=== PATIENT | female | born 1940 | race Caucasian/White ===

== ENCOUNTER 2020-08-22 12:13 | Inpatient (IN) | payer MEDICARE ==
[~2020-08-22] VITALS: Ht 154 cm; Wt 73.9 kg
[~2020-08-22 12:13] MED LIST: LISI5TAB; SULF1TAB38 PO
--- NOTE | 2020-08-22 12:30 | NUR ---
ATTEMPT TO CALL PT BACK TO ROOM ET PT NOT IN WAITING ROOM. REGISTRATION STATES THEY WILL TRY TO CONTACT THEM. UNKNONWN IF THEY LEFT OR JUST WENT TO CAR TO WAIT.
[2020-08-22] MEDS ORDERED: NS IV 1000 ML 1,000 ML IV STA (12:53)
--- NOTE | 2020-08-22 12:53 | ED Abdominal Pain ---
General Stated Complaint: ABD PAIN, History of Present Illness Date Seen by Provider: Aug 22, 2020 Time Seen by Provider: 12:53 Initial Comments 79-year-old female presents with right lower quadrant pain with some mild left lower quadrant pain. Patient reports she had an episode about 2 weeks ago which she has some pain after what she thought was some bad turkey and then it went away after a couple days. Reports the pain returned and is worse over the last couple days. She had quite a bit and nausea vomiting yesterday. She has some diarrhea. She denies any fever, chills. She has some generalized malaise and just doesn't feel good. She denies any pain in the upper quadrants. She denies any urinary symptoms. Allergies and Home Medications Allergies Coded Allergies: amoxicillin (Verified Allergy, Severe, HIVES, 08/22/20) cephalexin (Unverified Allergy, Mild, HIVES, 01/22/10) erythromycin base (Unverified Allergy, Mild, 01/22/10) Home Medications Trimethoprim/Sulfamethoxazole 1 Ea Tablet, 1 EA PO BID Prescribed by: JUANPABLO CABRERA on 12/16/11 1250 Patient Home Medication List Home Medication List Reviewed: Yes Review of Systems Review of Systems Constitutional: No chills, No fever; malaise Respiratory: Denies Cough, Denies Shortness of Air Cardiovascular: Denies Chest Pain Gastrointestinal: Denies Abdominal Pain, Denies Nausea, Denies Vomiting Genitourinary: No Symptoms Reported Skin: no symptoms reported Psychiatric/Neurological: No Symptoms Reported Endocrine: No Symptoms Reported Past Njeqopg-Tvibyk-Nqutgj Hx Past Med/Social Hx: Reviewed Nursing Past Med/Soc Hx Physical Exam Vital Signs Vital Signs - First Documented 08/22/20 12:50 Temp 36.7 Pulse 74 Resp 16 B/P (MAP) 148/80 (102) Pulse Ox 96 O2 Delivery Room Air Capillary Refill : Height/Weight/BMI Height: '" Weight: lbs. oz. kg; BMI Method: General Appearance: WD/WN, no apparent distress Respiratory: lungs clear, normal breath sounds Cardiovascular: normal peripheral pulses, regular rate, rhythm Gastrointestinal: soft; No distended; tenderness (right lower quadrant with mild left lower quadrant) Back: no CVA tenderness, no vertebral tenderness Neurologic/Psychiatric: alert, normal mood/affect, oriented x 3 Skin: normal color, warm/dry Focused Exam Lactate Level 08/22/20 14:50: Lactic Acid Level 0.95 Lactic Acid Level Laboratory Tests Test 08/22/20 14:50 Lactic Acid Level 0.95 MMOL/L (0.50-2.00) Progress/Results/Core Measures Results/Orders Lab Results Laboratory Tests Test 08/22/20 13:09 08/22/20 13:14 08/22/20 14:50 Range/Units Urine Color YELLOW Urine Clarity CLOUDY Urine pH 5.0 5-9 Urine Specific Evans >=1.030 1.016-1.022 Urine Protein TRACE H NEGATIVE Urine Glucose (UA) NEGATIVE NEGATIVE Urine Ketones NEGATIVE NEGATIVE Urine Nitrite NEGATIVE NEGATIVE Urine Bilirubin NEGATIVE NEGATIVE Urine Urobilinogen 0.2 < = 1.0 MG/DL Urine Leukocyte Esterase 2+ H NEGATIVE Urine RBC (Auto) 1+ H NEGATIVE Urine RBC 2-5 H /HPF Urine WBC 10-25 H /HPF Urine Squamous Epithelial Cells 5-10 /HPF Urine Crystals PRESENT H /LPF Urine Amorphous Sediment MOD SELIN URATES H /LPF Urine Bacteria MODERATE H /HPF Urine Casts NONE /LPF Urine Mucus NEGATIVE /LPF Urine Culture Indicated YES White Blood Count 11.6 H 4.3-11.0 10^3/uL Red Blood Count 5.00 3.80-5.11 10^6/uL Hemoglobin 14.7 11.5-16.0 g/dL Hematocrit 45 35-52 % Mean Corpuscular Volume 91 80-99 fL Mean Corpuscular Hemoglobin 29 25-34 pg Mean Corpuscular Hemoglobin Concent 33 32-36 g/dL Red Cell Distribution Width 12.9 10.0-14.5 % Platelet Count 253 130-400 10^3/uL Mean Platelet Volume 9.5 9.0-12.2 fL Sodium Level 139 135-145 MMOL/L Potassium Level 4.0 3.6-5.0 MMOL/L Chloride Level 100 98-107 MMOL/L Carbon Dioxide Level 29 21-32 MMOL/L Anion Gap 10 5-14 MMOL/L Blood Urea Nitrogen 15 7-18 MG/DL Creatinine 0.87 0.60-1.30 MG/DL Estimat Glomerular Filtration Rate > 60 BUN/Creatinine Ratio 17 Glucose Level 154 H 70-105 MG/DL Calcium Level 9.5 8.5-10.1 MG/DL Corrected Calcium 9.2 8.5-10.1 MG/DL Total Bilirubin 0.8 0.1-1.0 MG/DL Aspartate Amino Transf (AST/SGOT) 257 H 5-34 U/L Alanine Aminotransferase (ALT/SGPT) 362 H 0-55 U/L Alkaline Phosphatase 100 40-136 U/L C-Reactive Protein High Sensitivity 1.01 H 0.00-0.50 MG/DL Total Protein 7.4 6.4-8.2 GM/DL Albumin 4.4 3.2-4.5 GM/DL Lipase 5197 H 8-78 U/L Lactic Acid Level 0.95 0.50-2.00 MMOL/L My Orders Orders - WALLACE,ALCON L DO Cbc No Diff (08/22/20 12:53) Comprehensive Metabolic Panel (08/22/20 12:53) Hs C Reactive Protein (08/22/20 12:53) Lactic Acid Analyzer (08/22/20 12:53) Lipase (08/22/20 12:53) Ua Culture If Indicated (08/22/20 12:53) Acute Abd Series (08/22/20 12:53) Ondansetron Injection (Zofran Injectio (08/22/20 13:00) Ns Iv 1000 Ml (Sodium Chloride 0.9%) (08/22/20 12:53) Ed Iv/Invasive Line Start (08/22/20 12:53) Fentanyl Injection (Sublimaze Injection (08/22/20 13:16) Urine Culture (08/22/20 13:09) Ct Abdomen/Pelvis W (08/22/20 13:52) Iohexol Injection (Omnipaque 350 Mg/Ml 1 (08/22/20 14:00) Received Contrast (Hold Metformin- Contr (08/22/20 14:00) Ns (Ivpb) (Sodium Chloride 0.9% Ivpb Bag (08/22/20 14:00) Morphine Injection (Morphine Injection (08/22/20 15:30) Lactated Ringers (Lr 1000 Ml Iv Solution (08/22/20 15:37) Medications Given in ED Current Medications Medications Dose Ordered Sig/Curly Route Start Time Stop Time Status Last Admin Dose Admin Iohexol 100 ml ONCE ONCE IV 08/22/20 14:00 08/22/20 14:03 DC 08/22/20 15:05 100 ML Morphine Sulfate 2 mg ONCE ONCE IVP 08/22/20 15:30 08/22/20 15:31 DC 08/22/20 15:32 2 MG Ondansetron HCl 4 mg ONCE ONCE IVP 08/22/20 13:00 08/22/20 13:01 DC 08/22/20 13:08 4 MG Sodium Chloride 100 ml ONCE ONCE IV 08/22/20 14:00 08/22/20 14:03 DC 08/22/20 15:05 80 ML Vital Signs/I&O 08/22/20 12:50 Temp 36.7 Pulse 74 Resp 16 B/P (MAP) 148/80 (102) Pulse Ox 96 O2 Delivery Room Air Progress Progress Note : Time: 16:13 Progress Note Patient with elevated white count, elevated liver enzymes with normal bilirubin and elevated lipase. CT shows what appears to be an acute pancreatitis. Discussed with Dr. Doherty. We will admit patient for IV fluids and pain control. She'll be nothing by mouth. Patient is stable admitted is stable upon admission and transfer to the floor Diagnostic Imaging Diagonstic Imaging: Xray, CT Plain Films/CT/US/NM/MRI: abdomen Comments [facility], [place] NAME: MAXX MAXWELL [facility] REC#: [id number] PT STATUS: REG ER : 1940 PHYSICIAN: ALCON WALLACE DO ADMIT DATE: 08/22/20/ER Draft Date of Exam:08/22/20 CT ABDOMEN/PELVIS W PROCEDURE: CT abdomen and pelvis with contrast. TECHNIQUE: Multiple contiguous axial images were obtained through the abdomen and pelvis after administration of intravenous contrast. Auto Exposure Controls were utilized during the CT exam to meet ALARA standards for radiation dose reduction. All CT scans use one or more of the following dose optimizing techniques: automated exposure control, MA and/or KvP adjustment based on patient size and exam type or iterative reconstruction. INDICATION: Right lower quadrant pain. COMPARISON: There are no prior CT examinations available for comparison. FINDINGS: The plain film examination of the abdomen performed earlier today at 01:38 p.m. failed to show any sign of a bowel obstruction. On this exam however, there is considerable distortion of the mesenteric fat about the tail of the pancreas. I suspect this is due to edema/inflammation related to acute pancreatitis. There is no pancreatic mass or pseudocyst identified. The spleen, liver, adrenals, kidneys, aorta and inferior vena cava and portal vein show no sign of an acute abnormality. There is no evidence for cholelithiasis, but there may be a trace amount of fluid about the gallbladder. This could be secondary to the inflammation of the pancreas. If there is clinical concern regarding acute cholecystitis however, then ultrasound would be recommended. There is no pelvic mass or free fluid collection noted. There is diverticulosis of the sigmoid colon, but there is no sign of acute diverticulitis. The appendix was not particularly well visualized, but there are no indirect signs of acute appendicitis. The urinary bladder is grossly unremarkable. The uterus does not appear to be enlarged but the endometrial lining of the uterus is thickened measuring approximately 22 mm (normal postmenopausal endometrial thickness, 5 mm or less). The reason for the thickened appearance of the endometrium is not certain, but the possibility of an underlying malignancy should certainly be considered. The bone windows show no sign of acute fracture. There are healed fractures of the inferior pubic rami bilaterally. There is also degenerative disc and bone disease throughout the lumbar spine. The lung bases are clear. IMPRESSION: 1. There is considerable distortion of the mesenteric fat about the tail of pancreas. Most likely this is due to edema/inflammation related to an acute pancreatitis. There is no pancreatic mass or pseudocyst identified, however. 2. The trace amount of fluid about the gallbladder is of uncertain etiology. There is no sign of cholelithiasis. If further evaluation of the gallbladder for acute cholecystitis is desired, then ultrasound would be recommended. 3. There is no acute abnormality of the abdomen or pelvis noted, otherwise. 4. The endometrial lining of the uterus is abnormally thickened for a postmenopausal patient. An RETAIL ATTENDANT consult would be recommended when the patient's condition permits. These results were discussed with Dr. Alcon Wallace. Reviewed: Reviewed by Me, Discussed w/Radiologist Departure Communication (Admissions) Time/Spoke to Admitting Phy: 15:37 Impression Primary Impression: Pancreatitis Qualified Codes: K85.90 - Acute pancreatitis without necrosis or infection, unspecified Disposition: ADMITTED INPATIENT Condition: Stable Admissions Decision to Admit Reason: Admit from ER (General) Decision to Admit/Date: Aug 22, 2020 Time/Decision to Admit Time: 15:37 Departure-Patient Inst. Referrals: DEONNA URIARTE MD (PCP/Family) Primary Care Physician ALCON WALLACE DO Aug 22, 2020 12:53
[2020-08-22] MEDS ORDERED: ONDANSETRON 4 MG/2 ML (SDV) Z0FRAN IVP ONE (13:00)
[2020-08-22 13:15] LABS: BILIRUBIN,URINE NEGATIVE (NEGATIVE); CLARITY,URINE CLOUDY; COLOR,URINE YELLOW; GLUCOSE, URINE (UA) NEGATIVE (NEGATIVE); KETONES,URINE NEGATIVE (NEGATIVE); LEUKOCYTE ESTERASE ,URINE 2+ (NEGATIVE); NITRITE,URINE NEGATIVE (NEGATIVE); PROTEIN,URINE TRACE (NEGATIVE)
[2020-08-22] MEDS ORDERED: fentaNYL INJECTION 100 MCG/2 ML AMP IVP STA (13:16)
[2020-08-22 13:21] LABS: HEMOGLOBIN 14.7 g/dL (11.5-16.0); MEAN PLATELET VOLUME 9.5 fL (9.0-12.2); WHITE BLOOD COUNT 11.6 10^3/uL (4.3-11.0)
[2020-08-22 13:22] LABS: BACTERIA,URINE MODERATE /HPF
[2020-08-22 13:23] LABS: AMORPHOUS SEDIMENT,UR MOD AMOR URATES /LPF
[2020-08-22 13:30] LABS: ALBUMIN 4.4 GM/DL (3.2-4.5); CHLORIDE 100 MMOL/L (98-107); SODIUM 139 MMOL/L (135-145)
[2020-08-22 13:31] LABS: CALCIUM 9.5 MG/DL (8.5-10.1)
[2020-08-22 13:32] LABS: GLUCOSE 154 MG/DL (70-105); TOTAL PROTEIN 7.4 GM/DL (6.4-8.2)
[2020-08-22 13:33] LABS: CARBON DIOXIDE 29 MMOL/L (21-32)
[2020-08-22 13:34] LABS: BILIRUBIN,TOTAL 0.8 MG/DL (0.1-1.0)
[2020-08-22 13:36] LABS: ALKALINE PHOSPHATASE 100 U/L (40-136); CREATININE SERUM 0.87 MG/DL (0.60-1.30); GFR ESTIMATED > 60
[2020-08-22 13:37] LABS: BUN/CREATININE RATIO 17
[2020-08-22 13:39] LABS: ALANINE AMINOTRANSFERASE 362 U/L (0-55)
--- NOTE | 2020-08-22 13:46 | Diagnostic Imaging Report ---
INDICATION: abd pain COMPARISON: 03/27/2019 FINDINGS: Supine and upright views of the abdomen show a nondistended bowel gas pattern. No abnormal air fluid levels or free intraperitoneal air is seen. No abnormal extraosseous calcifications are seen. Bony and soft tissue structures are within normal limits. Accompanying upright chest shows normal heart size and pulmonary vascularity. The lungs are well aerated and clear. The mediastinum is normal in appearance. IMPRESSION: 1. No bowel obstruction or free air. 2. Normal chest. No pneumonia or pulmonary edema. Dictated by: Dictated on workstation # [id number]
[2020-08-22] MEDS ORDERED: NS 100 ML (IVPB) BAG IV ONE (14:00)
[2020-08-22] MEDS ORDERED: HOLD METFORMIN - RECEIVED CONTRAST 20 ML VIAL IV SCH (14:00)
[2020-08-22] MEDS ORDERED: IOHEXOL 350 MG/ML 100 ML (OMNIPAQUE 350) VIAL IV ONE (14:00)
[2020-08-22 14:16] LABS: LIPASE 5197 U/L (8-78)
--- NOTE | 2020-08-22 14:35 | NUR ---
CONTACTED BY EMMANUEL BECAUSE PT IS WANTING HIM TO GO HOME.
[2020-08-22] MEDS ORDERED: morphine INJ 10 MG/ML 1ML (SYR OR VIAL) IVP ONE (15:30)
--- NOTE | 2020-08-22 15:36 | Diagnostic Imaging Report ---
PROCEDURE: CT abdomen and pelvis with contrast. TECHNIQUE: Multiple contiguous axial images were obtained through the abdomen and pelvis after administration of intravenous contrast. Auto Exposure Controls were utilized during the CT exam to meet ALARA standards for radiation dose reduction. All CT scans use one or more of the following dose optimizing techniques: automated exposure control, MA and/or KvP adjustment based on patient size and exam type or iterative reconstruction. INDICATION: Right lower quadrant pain. COMPARISON: There are no prior CT examinations available for comparison. FINDINGS: The plain film examination of the abdomen performed earlier today at 01:38 p.m. failed to show any sign of a bowel obstruction. On this exam however, there is considerable distortion of the mesenteric fat about the tail of the pancreas. I suspect this is due to edema/inflammation related to acute pancreatitis. There is no pancreatic mass or pseudocyst identified. The spleen, liver, adrenals, kidneys, aorta and inferior vena cava and portal vein show no sign of an acute abnormality. There is no evidence for cholelithiasis, but there may be a trace amount of fluid about the gallbladder. This could be secondary to the inflammation of the pancreas. If there is clinical concern regarding acute cholecystitis however, then ultrasound would be recommended. There is no pelvic mass or free fluid collection noted. There is diverticulosis of the sigmoid colon, but there is no sign of acute diverticulitis. The appendix was not particularly well visualized, but there are no indirect signs of acute appendicitis. The urinary bladder is grossly unremarkable. The uterus does not appear to be enlarged but the endometrial lining of the uterus is thickened measuring approximately 22 mm (normal postmenopausal endometrial thickness, 5 mm or less). The reason for the thickened appearance of the endometrium is not certain, but the possibility of an underlying malignancy should certainly be considered. The bone windows show no sign of acute fracture. There are healed fractures of the inferior pubic rami bilaterally. There is also degenerative disc and bone disease throughout the lumbar spine. The lung bases are clear. IMPRESSION: 1. There is considerable distortion of the mesenteric fat about the tail of pancreas. Most likely this is due to edema/inflammation related to an acute pancreatitis. There is no pancreatic mass or pseudocyst identified, however. 2. The trace amount of fluid about the gallbladder is of uncertain etiology. There is no sign of cholelithiasis. If further evaluation of the gallbladder for acute cholecystitis is desired, then ultrasound would be recommended. 3. There is no acute abnormality of the abdomen or pelvis noted, otherwise. 4. The endometrial lining of the uterus is abnormally thickened for a postmenopausal patient. An BLEACH BOILER FILLER consult would be recommended when the patient's condition permits. These results were discussed with Dr. Arron Bruno. Dictated by: Dictated on workstation # [id number]
[2020-08-22] MEDS ORDERED: LACTATED RINGERS 1,000 ML IV STA (15:37)
--- NOTE | 2020-08-22 15:51 | NUR ---
PT TALKING TO HER ON THE PHONE.
--- NOTE | 2020-08-22 15:53 | NUR ---
SUMMER BABYSITTER CONTACTED FOR A BED.
--- NOTE | 2020-08-22 16:30 | NUR ---
Mariana Lurdes admitted to room 416-1, with an admitting diagnosis of pancreatitis, on 08/22/20 from [place] via , accompanied by .MARIANA MAXWELL introduced to surroundings, call light, bed controls, phone, TV, temperature control, lights, meal times, smoking policy, visitor policy, side rail policy, bathrooms and showers. Patient Rights given to patient in the handbook.MARIANA MAXWELL verbalizes understanding that [facility] is not responsible for the loss or damage to any personal effects or valuables that are kept in the patients posession during their hospitalization. MARIANA MAXWELL verbalizes understanding of Interdisciplinary Patient Education. Patient and/or family were informed about the Rapid Response Team and its purpose.
[2020-08-22 16:31] VITALS: BP 134/83
[2020-08-22] MEDS: LACTATED RINGERS 1,000 ML IV SCH ×2 (16:42→21:39)
[2020-08-22] MEDS: morphine INJ 4 MG/ML 1 ML (VIAL/SYRINGE) IVP PRN ×2 (16:43→20:05)
[2020-08-22] MEDS: ONDANSETRON 4 MG/2 ML (SDV) Z0FRAN IVP PRN ×2 (16:43→21:39)
[2020-08-22 19:14] VITALS: BP 136/74
[2020-08-23] VITALS: BP 108/61
[2020-08-23] MEDS: LACTATED RINGERS 1,000 ML IV SCH ×5 (02:49→20:10)
[2020-08-23 04:54] VITALS: BP 120/67
[2020-08-23 05:34] LABS: BASOPHILS % (AUTO) 0 % (0-10); EOSINOPHILS % (AUTO) 0 % (0-10); HEMATOCRIT 40 % (35-52); HEMOGLOBIN 12.7 g/dL (11.5-16.0); LYMPHOCYTES # (AUTO) 0.5 10^3/uL (1.0-4.0); LYMPHOCYTES % (AUTO) 3 % (12-44); MEAN CORPUSCULAR HEMOGLOBIN 29 pg (25-34); MEAN CORPUSCULAR HGB CONC 32 g/dL (32-36); MEAN CORPUSCULAR VOLUME 91 fL (80-99); MEAN PLATELET VOLUME 9.9 fL (9.0-12.2); MONOCYTES # (AUTO) 1.2 10^3/uL (0.0-1.0); MONOCYTES % (AUTO) 7 % (0-12); NEUTROPHILS # (AUTO) 15.1 10^3/uL (1.8-7.8); NEUTROPHILS % (AUTO) 89 % (42-75); PLATELET COUNT 185 10^3/uL (130-400)
[2020-08-23 05:45] LABS: ALBUMIN 3.4 GM/DL (3.2-4.5)
[2020-08-23 05:46] LABS: CHLORIDE 105 MMOL/L (98-107); POTASSIUM 3.9 MMOL/L (3.6-5.0); SODIUM 139 MMOL/L (135-145)
[2020-08-23 05:47] LABS: CALCIUM 8.4 MG/DL (8.5-10.1)
[2020-08-23 05:48] LABS: GLUCOSE 107 MG/DL (70-105); TOTAL PROTEIN 5.7 GM/DL (6.4-8.2)
[2020-08-23 05:49] LABS: CARBON DIOXIDE 21 MMOL/L (21-32)
[2020-08-23 05:50] LABS: BILIRUBIN,TOTAL 1.1 MG/DL (0.1-1.0)
[2020-08-23 05:51] LABS: ALKALINE PHOSPHATASE 81 U/L (40-136)
[2020-08-23 05:52] LABS: GFR ESTIMATED > 60
[2020-08-23 05:53] LABS: BUN/CREATININE RATIO 16
[2020-08-23 05:55] LABS: ALANINE AMINOTRANSFERASE 197 U/L (0-55)
[2020-08-23 06:24] LABS: BAND NEUTROPHILS 18 %; LYMPHOCYTES % (MANUAL) 3 %; MONOCYTES % (MANUAL) 2 %; NEUTROPHILS % (MANUAL) 77 %; RBC MORPH NORMAL
[2020-08-23 08:00] VITALS: BP 110/66
[2020-08-23] MEDS ORDERED: ASCO-262 PO (09:58)
[2020-08-23] MEDS ORDERED: LISI-556 PO (09:58)
[2020-08-23] MEDS ORDERED: CRAN1TAB4 PO (09:58)
[2020-08-23] MEDS ORDERED: LOTE5GEL OU (09:58)
[2020-08-23] MEDS ORDERED: ASPI-789 PO (09:58)
[2020-08-23] MEDS ORDERED: MULT-1136 PO (09:58)
--- NOTE | 2020-08-23 09:59 | NUR ---
SPOKE WITH THE PT AND WENT THRU THE EXT MED HISTORY TO COMPLETE THE MED REC ON 08-22-2020 CIPROFLOXACIN 500MG #14/7DS WAS FILLED AT [facility] HOWEVER PT NEVER PICKED THIS UP DUE TO COMING STRAIGHT HERE TO THE HOSPITAL. FOR THAT REASON I DID NOT INCLUDE IT ON THE MED REC OTC MEDS: EXCEDRIN MTV VIT C AZO CRANBERRY
--- NOTE | 2020-08-23 11:09 | Diagnostic Imaging Report ---
CLINICAL INDICATION: Patient with distended gallbladder and pancreatitis. EXAM: Right upper quadrant ultrasound. COMPARISON: CT scan of the abdomen and pelvis with contrast dated 08/22/2020. FINDINGS: The borders of the pancreas are ill-defined and not well delineated which correlates with the patient's history of pancreatitis. There is no circumscribed fluid collection seen near the pancreas. The liver has normal echogenicity and echotexture. The liver surface is smooth. The liver measures 16.7 cm. The main portal vein demonstrates normal hepatopetal flow. There is upper limits of normal gallbladder wall thickening at 3 mm. There is an area of echogenicity within the gallbladder with posterior shadowing seen. There is no sonographic Resendiz sign. There is no intrahepatic or extrahepatic ductal dilation. The common bile duct measures 5.7 mm which is within normal limits for patient age. The visualized portions of the abdominal aorta and IVC are unremarkable. The right kidney has normal cortical thickness with no hydronephrosis or mass. The right kidney measures 10.5 cm in craniocaudal dimension. There is no abdominal ascites. IMPRESSION: 1. Likely cholelithiasis with no ultrasound evidence of cholecystitis. Nonspecific upper limits of normal gallbladder wall thickening with no sonographic Resendiz sign. 2. Ill-defined pancreatic borders, consistent with the patient's history of pancreatitis. There is no contained peripancreatic fluid collection seen. 3. The remainder of this exam shows no other significant abnormality. Dictated by: Dictated on workstation # [id number]
[2020-08-23 12:00] VITALS: BP 109/68
[2020-08-23] MEDS: morphine INJ 4 MG/ML 1 ML (VIAL/SYRINGE) IVP PRN ×2 (12:04→16:16)
--- NOTE | 2020-08-23 14:12 | History & Physical-Hospitalist ---
History of Present Illness HPI/Chief Complaint Mariana Chatman is a 79-year-old female with past medical history of hypertension who presented with abdominal pain. She reports that the pain started in her right upper quadrant and then moved to her epigastric region. She reports also having nausea and vomiting. She denies any hematemesis. She reports having diarrhea. She denies any hematochezia or melena. She denies any fevers or chills. She denies any shortness of breath or cough. She denies any chest pain or palpitations. She still has her gallbladder. She denies ever having any issues with gallstones. She denies any history of pancreatitis. She does not drink alcohol. She does not smoke or use illicit drugs. Source: patient Exam Limitations: no limitations Date Seen 08/23/20 Time Seen by a Provider: 09:20 Attending Physician Norma Jaime MD PCP Tamir Brewer MD Referring Physician Date of Admission Aug 22, 2020 at 16:02 Home Medications & Allergies Home Medications Reviewed patient Home Medication Reconciliation performed by pharmacy medication reconciliations motion study technician and/or nursing. Patients Allergies have been reviewed. Allergies Allergies Coded Allergies amoxicillin (Verified Allergy, Severe, HIVES, 08/22/20) cephalexin (Unverified Allergy, Mild, HIVES, 01/22/10) erythromycin base (Unverified Allergy, Mild, 01/22/10) Past Tulczmo-Vmzadw-Wuksxd Hx Past Med/Social Hx: Reviewed and Corrections made Patient Social History Employed/Student: retired (teacher) Alcohol Use: Denies Use Recreational Drug Use: No Smoking Status: Never a Smoker Recent Foreign Travel: No Contact w/other who traveled: No Recent Hopitalizations: No Recent Infectious Disease Expo: Yes Immunizations Up To Date Date of Pneumonia Vaccine: Sep 10, 2017 Date of Influenza Vaccine: Jun 15, 2020 Past Medical History Surgeries: Eye Surgery Cardiac: Hypertension Family History Diabetes mellitus 19 MOTHER Review of Systems Constitutional: no symptoms reported EENTM: no symptoms reported Respiratory: no symptoms reported Cardiovascular: no symptoms reported Gastrointestinal: abdominal pain, diarrhea, nausea, vomiting Genitourinary: no symptoms reported Musculoskeletal: no symptoms reported Skin: no symptoms reported Psychiatric/Neurological: No Symptoms Reported Physical Exam Physical Exam Vital Signs Vital Signs - First Documented 08/22/20 12:50 Temp 36.7 Pulse 74 Resp 16 B/P (MAP) 148/80 (102) Pulse Ox 96 O2 Delivery Room Air Capillary Refill : Less Than 3 SecondsLess Than 3 Seconds Height, Weight, BMI Height: '" Weight: lbs. oz. kg; 31.16 BMI Method: General Appearance: No Apparent Distress, Obese HEENT: PERRL/EOMI, Pharynx Normal Neck: Normal Inspection, Supple Respiratory: Lungs Clear, Normal Breath Sounds, No Respiratory Distress Cardiovascular: Regular Rate, Rhythm, No Edema, No Murmur Gastrointestinal: Normal Bowel Sounds, Soft, Tenderness Extremity: Normal Inspection, Non Tender, No Pedal Edema Neurologic/Psychiatric: Alert, Oriented x3, No Motor/Sensory Deficits, Normal Mood/Affect Skin: Normal Color, Warm/Dry Lymphatic: No Adenopathy Results Results/Procedures Labs Laboratory Tests 08/22/20 13:14 08/23/20 05:08 Patient resulted labs reviewed. Imaging: Reviewed Imaging Report Assessment/Plan Admission Diagnosis Acute pancreatitis Admission Status: Inpatient Order (span 2 midnights) Reason for Inpatient Admission: Pancreatitis requiring IV fluids, pain control, and likely surgical intervention Assessment and Plan Acute pancreatitis Elevated LFTs Likely gallstone pancreatitis LFTs elevated on arrival, AST/ALT trending down today, T bili slightly up Lipase >[address] Abdomen showed acute pancreatitis, no gallstones visualized IV fluids NPO Pain regimen ordered Consult general surgery, appreciate assistance SIRS UTI Afebrile, WBC elevated today, 18% bands UA concerning for UTI Lactic acid normal Chest xray ordered Add on procalcitonin Obtain blood cultures Begin Rocephin for possible UTI Endometrial thickening Incidental finding on CT Follow up with HOE WORKER for further evaluation HTN Holding home meds DVT Prophylaxis: Lovenox Diagnosis/Problems Diagnosis/Problems (1) Acute pancreatitis Status: Acute Qualifiers: Pancreatitis type: biliary Acute pancreatitis complication: no infection or necrosis Qualified Codes: K85.10 - Biliary acute pancreatitis without necrosis or infection (2) Elevated LFTs Status: Acute (3) HTN (hypertension) Status: Chronic Qualifiers: Hypertension type: essential hypertension Qualified Codes: I10 - Essential (primary) hypertension (4) Thickened endometrium Status: Acute (5) Obesity Status: Chronic Clinical Quality Measures DVT/VTE Risk/Contraindication: Risk Factor Score Per Nursin RFS Level Per Nursing on Admit: 4+=Very High NORMA JAIME MD Aug 23, 2020 14:12
[2020-08-23] MEDS ORDERED: diphenhydrAMINE 25 MG TAB (BENADRYL) PO PRN (14:30)
[2020-08-23] MEDS ORDERED: HYDROcodone/APAP 7.5 MG/325 MG (LORTAB, LORCET PLUS) TABLET PO PRN (15:00)
[2020-08-23] MEDS ORDERED: ACETAMINOPHEN 325 MG TABLET PO PRN (15:00)
--- NOTE | 2020-08-23 15:32 | NUR ---
Pt is Faith. Want Ad Receiver provided prayer and Communion. Pt was also recently anointed.
[2020-08-23 15:33] VITALS: BP 119/66
--- NOTE | 2020-08-23 15:43 | Progress Note-Pre Operative ---
Pre-Operative Progress Note H&P Reviewed The H&P was reviewed, patient examined and no changes noted. Date Seen by Provider: Aug 23, 2020 Time Seen by Provider: 15:40 Date H&P Reviewed: Aug 23, 2020 Time H&P Reviewed: 15:40 Pre-Operative Diagnosis: gallstone pancreatitis SHAYNE SANTILLAN MD Aug 23, 2020 15:43
--- NOTE | 2020-08-23 15:46 | Diagnostic Imaging Report ---
INDICATION: Leukocytosis. COMPARISON: 08/22/2020. FINDINGS: A single frontal radiographic view of the chest was obtained and demonstrates interval development of mild cardiomegaly and mild vascular congestion. There is also mild diffuse prominence of the pulmonary interstitium. New left basilar airspace disease is also present and obscures the left hemidiaphragm. There is no large effusion on the right. No pneumothorax is seen on either side. The osseous structures show no gross acute abnormalities. IMPRESSION: Interval development of cardiomegaly and findings suspicious for sequela of CHF including probable small left basilar effusion and associated atelectasis. Some component of left basilar infiltrate is not entirely excluded. Dictated by: Dictated on workstation # [id number]
[2020-08-23] MEDS: cefTRIAXone FOR IV USE 1,000 MG in WATER (STERILE) FOR INJECTION 10 ML IV SCH ×2 (15:47→18:02)
--- NOTE | 2020-08-23 16:23 | NUR ---
Contacted Dr Calixto as patient C/O of left eye pain since she returned from surgery, she states it feels like she has something in her eye. flushed eye with NS and warmed packed. Continues to state it is painful, slightly reddened. Dr Calixto requested I ask anesthesia come look at it. Left a message as no answer. Addendum: 08/23/20 at 1628 by FLAVIO GARCIA RN Above note dated 08/23/20 at 1626 placed in wrong chart
--- NOTE | 2020-08-23 19:02 | CONSULTATION REPORT ---
DATE OF SERVICE: 08/23/2020 ATTENDING PRIMARY CARE PHYSICIAN: Dr. Tamir Brewer. ADMITTING PHYSICIAN: Dr. Doherty. HISTORY OF PRESENT ILLNESS: The patient is a 79-year-old female, who presented with abdominal pain in the right upper abdominal quadrant as well as the epigastric region. She also reported having intermittent episodes of nausea and vomiting. She reports that this recent episode was more severe and she did have a similar episode approximately 2 weeks ago. Upon further questioning, she reports that she has had some milder symptoms in the past as well. A CT scan was performed, which did show a mild distal pancreatitis as well as a distended gallbladder. This is likely consistent with a gallstone pancreatitis. On examination, she does have a pain in the right upper abdominal quadrant and a positive Resendiz sign. PAST MEDICAL HISTORY: Hypertension. PAST SURGICAL HISTORY: None. ALLERGIES: ERYTHROMYCIN, CEPHALEXIN, AMOXICILLIN. MEDICATIONS: Lisinopril 5 mg b.i.d., aspirin 81 mg daily. SOCIAL HISTORY: Negative smoke, negative alcohol. FAMILY HISTORY: Noncontributory. VITAL SIGNS: Temperature 37.1, blood pressure 109/68, pulse 106, respirations 20, pulse ox 91% on room air. REVIEW OF SYSTEMS: A well-nourished female currently in no acute distress. She is not experiencing any shortness of breath or difficulty breathing. No chest pain, palpitations, diaphoresis. Intermittent episodes of nausea, no vomiting, no hematemesis, no coffee ground emesis. History of constipation, no red blood per rectum, no dark tarry stools. No fever, chills, no recent inadvertent weight loss. All other review of systems negative. PHYSICAL EXAMINATION: CHEST: Good breath sounds bilaterally. HEART: Regular, no murmurs. EXTREMITIES: No lower extremity edema, negative Homans sign. HEENT: No scleral icterus. NECK: No cervical lymphadenopathy. ABDOMEN: Soft, nondistended. There is pain in the right upper abdominal quadrant upon palpation. SKIN: Warm, dry. ASSESSMENT AND PLAN: A 79-year-old female with gallstone pancreatitis. At this time, her pancreatitis appears to be mild and her laboratory values are trending downward. Ultrasound was performed, which also did show multiple gallstones as well as biliary sludge and the likely etiology of the gallstone pancreatitis. We will proceed with a laparoscopic cholecystectomy on this admission. Job ID: [id number] DocumentID: [id number] Dictated Date: 08/23/2020 14:47:13 Project Management Specialist Date: 08/23/2020 19:00:58 Dictated By: SHAYNE SANTILLAN MD MTDD
[2020-08-23 19:08] VITALS: BP 108/67
[2020-08-23] MEDS: metroNIDAZOLE 500MG/100ML IVPB 100 ML IV SCH (20:10)
[2020-08-23] MEDS: CIPROFLOXACIN IV 400MG/200ML 200 ML IV SCH (21:22)
[2020-08-24] VITALS (17 sets, daily range): BP systolic 93–127; BP diastolic 51–91
[2020-08-24] MEDS: LACTATED RINGERS 1,000 ML IV SCH ×4 (04:40→21:25)
[2020-08-24 05:43] LABS: BASOPHILS % (AUTO) 0 % (0-10); EOSINOPHILS # (AUTO) 0.1 10^3/uL (0.0-0.3); EOSINOPHILS % (AUTO) 1 % (0-10); HEMATOCRIT 37 % (35-52); HEMOGLOBIN 11.7 g/dL (11.5-16.0); LYMPHOCYTES # (AUTO) 0.6 10^3/uL (1.0-4.0); LYMPHOCYTES % (AUTO) 3 % (12-44); MEAN CORPUSCULAR HEMOGLOBIN 29 pg (25-34); MEAN CORPUSCULAR HGB CONC 32 g/dL (32-36); MEAN CORPUSCULAR VOLUME 91 fL (80-99); MEAN PLATELET VOLUME 9.4 fL (9.0-12.2); MONOCYTES # (AUTO) 1.2 10^3/uL (0.0-1.0); MONOCYTES % (AUTO) 6 % (0-12); NEUTROPHILS # (AUTO) 16.3 10^3/uL (1.8-7.8); NEUTROPHILS % (AUTO) 88 % (42-75); PLATELET COUNT 180 10^3/uL (130-400); WHITE BLOOD COUNT 18.5 10^3/uL (4.3-11.0)
[2020-08-24 06:13] LABS: ALANINE AMINOTRANSFERASE 119 U/L (0-55); ALBUMIN 3.1 GM/DL (3.2-4.5); ALKALINE PHOSPHATASE 66 U/L (40-136); BILIRUBIN,TOTAL 1.1 MG/DL (0.1-1.0); BUN/CREATININE RATIO 17; CALCIUM 8.3 MG/DL (8.5-10.1); CARBON DIOXIDE 27 MMOL/L (21-32); CHLORIDE 102 MMOL/L (98-107); CREATININE SERUM 0.71 MG/DL (0.60-1.30); GFR ESTIMATED > 60; GLUCOSE 102 MG/DL (70-105); LIPASE 81 U/L (8-78); POTASSIUM 4.1 MMOL/L (3.6-5.0); SODIUM 136 MMOL/L (135-145); TOTAL PROTEIN 4.8 GM/DL (6.4-8.2)
[2020-08-24] MEDS: CIPROFLOXACIN IV 400MG/200ML 200 ML IV SCH (08:02)
[2020-08-24] MEDS: metroNIDAZOLE 500MG/100ML IVPB 100 ML IV SCH ×2 (08:18→21:26)
[2020-08-24] MEDS: morphine INJ 4 MG/ML 1 ML (VIAL/SYRINGE) IVP PRN (13:01)
--- NOTE | 2020-08-24 14:09 | Progress Note ---
CATHIE AN MED STUDENT 08/24/20 1409: Subjective Subjective/Events-last exam HPI: Mariana Chatman is a 79 yo F with past medical history of hypertension who presented on 08/22 for abdominal pain, nausea, and vomiting. The pain originated in RUQ and moved to the epigastric region. She denied hematemisis, hematochezia, or viv. she notes the pain was slightly worse after eating but the pain was constant. She denies h/o gallstone issues or pancreatitis. She denies alcohol, tobacco, or drug use. Subjective: She reports feeling better today and reports her pain is well controlled on her current medications. Her only complaint is a persistent headache. She states she gets these often and usually resolve with Excedrin. Review of Systems General: No Chills, No Night Sweats HEENT: Head Aches; No Visual Changes, No Dysphasia Pulmonary: No Dyspnea, No Cough, No Pleuritic Chest Pain Cardiovascular: No: Chest Pain, Palpitations, Edema, Lt Headedness Gastrointestinal: No: Nausea, Vomiting, Abdominal Pain (patient states that the pain she presented with has been managed well with the pain medication ), Diarrh ea, Constipation, Melena, Hematochezia Genitourinary: No Dysuria, No Frequency, No Hematuria Neurological: No: Weakness, Numbness Focused Exam Lactate Level 08/22/20 14:50: Lactic Acid Level 0.95 08/23/20 12:00: Lactic Acid Level 1.63 Objective Exam Last Set of Vital Signs Vital Signs Date Time Temp Pulse Resp B/P (MAP) Pulse Ox O2 Delivery O2 Flow Rate FiO2 08/24/20 11:20 37.1 87 16 104/61 (75) 91 Room Air Capillary Refill : Less Than 3 SecondsLess Than 3 Seconds I&O Intake and Output 08/24/20 00:00 Intake Total 0 ml Output Total 1300 ml Balance -1300 ml Intake Oral 0 ml Output Urine Total 1300 ml # Voids 6 General: Alert, Oriented X3, Cooperative, No Acute Distress HEENT: Atraumatic, PERRLA, EOMI Neck: Supple, No Thyromegaly Lungs: Clear to Auscultation, Normal Air Movement Heart: Regular Rate, No Murmurs Abdomen: Soft, No Hepatosplenomegaly, No Masses, Other (mild tenderness to deep palpation and decreased bowel sounds ) Extremities: No Clubbing, No Cyanosis, No Edema, Normal Pulses Skin: No Rashes, No Breakdown, No Significant Lesion Psych/Mental Status: Mental Status NL, Mood NL Results/Procedures Lab Laboratory Tests 08/23/20 19:40: Coronavirus 2019 ([facility]) Negative 08/24/20 05:25: White Blood Count 18.5H, Red Blood Count 4.06, Hemoglobin 11.7, Hematocrit 37, Mean Corpuscular Volume 91, Mean Corpuscular Hemoglobin 29, Mean Corpuscular Hemoglobin Concent 32, Red Cell Distribution Width 13.2, Platelet Count 180, Mean Platelet Volume 9.4, Immature Granulocyte % (Auto) 1, Neutrophils (%) (Auto) 88H, Lymphocytes (%) (Auto) 3L, Monocytes (%) (Auto) 6, Eosinophils (%) (Auto) 1, Basophils (%) (Auto) 0, Neutrophils # (Auto) 16.3H, Lymphocytes # (Auto) 0.6L, Monocytes # (Auto) 1.2H, Eosinophils # (Auto) 0.1, Basophils # (Auto) 0.0, Immature Granulocyte # (Auto) 0.3H, Sodium Level 136, Potassium Level 4.1, Chloride Level 102, Carbon Dioxide Level 27, Anion Gap 7, Blood Urea Nitrogen 12, Creatinine 0.71, Estimat Glomerular Filtration Rate > 60, BUN/Creatinine Ratio 17, Glucose Level 102, Calcium Level 8.3L, Corrected Calciu m 9.0, Total Bilirubin 1.1H, Aspartate Amino Transf (AST/SGOT) 53H, Alanine Aminotransferase (ALT/SGPT) 119H, Alkaline Phosphatase 66, Total Protein 4.8L, Albumin 3.1L, Lipase 81H Microbiology 08/22/20 Urine Culture - Final, Complete Strep agalactiae Group B Assessment/Plan Assessment/Plan Admission Dx pancreatitis Admission Status: Inpatient Order (span 2 midnights) Assessment & Plan Mariana Chatman is a 79 yo F with a history of hypertension who was admitted on 08/22 for abdominal pain, nausea, and vomiting due to acute pancreatitis. # Acute pancreatitis - likely gallstone pancreatitis - LFTs elevated on arrival, AST/ALT trending down today, T bili slightly up - lipase >5000 on arrival - CT Abdomen showed acute pancreatitis, no gallstones visualized - gallstones and biliary sludge seen on ultrasound - IV fluids - NPO - Pain regimen ordered - General surgery consulted and plans to do lap cholecystectomy prior to discharge # Sepsis - patient meets Sepsis criteria - either secondary to UTI or pancreatitis - continue LR fluids - Metranidazole 500mg Q 12hr (08/23-) - Ceftriaxone 1,000mg Q day (08/23-) # UTI - Transient fever, elevated WBC - UA concerning for UTI - Urine cultures grew GBS agalactea - Lactic acid normal - elevated procalcitonin 0.6 - blood cultures pending - Chest xray showed cardiomegaly and findings suspicious for CHF: small left basilar effusion and infiltrate # Endometrial thickening - Incidental finding on CT - Follow up with [facility]ER for further evaluation # HTN Holding home meds # DVT Prophylaxis: Lovenox (1) Acute pancreatitis Status: Acute Qualifiers: Qualified Codes: K85.10 - Biliary acute pancreatitis without necrosis or infection (2) Elevated LFTs Status: Acute Clinical Quality Measures DVT/VTE Risk/Contraindication: Risk Factor Score Per Nursin RFS Level Per Nursing on Admit: 4+=Very High MICAH GUPTA MD 08/24/20 1619: Supervisory-Addendum Brief Verification & Attestation Participated in pt care: history, MDM, physical Personally performed: exam, history Care discussed with: Medical Student Procedures: n/a I personally examined this patient today and did my own history and exam which agree with those documented by the medical student, but I did not repeat the neck exam and cannot confirm those findings. I directed the plan of care as documented. CATHIE AN MED STUDENT Aug 24, 2020 14:09 MICAH GUPTA MD Aug 24, 2020 16:19
[2020-08-24] MEDS ORDERED: LIDOCAINE/EPI 1%-1:200,000 (XYLOCAINE) 30 ML VIAL ONE (15:39)
[2020-08-24] MEDS ORDERED: SEVOFLURANE (ULTANE) 15 ML INHAL SOLN ONE ×4 (15:54→17:05)
[2020-08-24] MEDS ORDERED: LIDOCAINE PF 2% 5 ML (XYLOCAINE) VIAL ONE (15:54)
[2020-08-24] MEDS ORDERED: proPOfol 200 MG/20 ML (DIPRIVAN) VIAL IV ONE (15:54)
[2020-08-24] MEDS ORDERED: MIDAZOLAM 2 MG/2 ML (VERSED) VIAL ONE (15:55)
[2020-08-24] MEDS ORDERED: fentaNYL INJECTION 100 MCG/2 ML AMP ONE (15:56)
[2020-08-24] MEDS ORDERED: ONDANSETRON 4 MG/2 ML (SDV) Z0FRAN ONE (16:14)
[2020-08-24] MEDS ORDERED: ROCURONIUM 10 MG/ML 5 ML SYRINGE IV ONE (16:14)
[2020-08-24] MEDS ORDERED: cefTRIAXone FOR IV USE 1,000 MG in WATER (STERILE) FOR INJECTION 10 ML IV SCH (16:30)
[2020-08-24] MEDS ORDERED: ceFAZolin INJECTION 1,000 MG ONE (16:32)
[2020-08-24] MEDS ORDERED: CLINDAMYCIN 600 MG/4ML (CLEOCIN) VIAL ONE (16:42)
[2020-08-24] MEDS ORDERED: CLINDAMYCIN 600 MG/50 ML IVPB 50 ML IV ONE (16:45)
[2020-08-24] MEDS ORDERED: NEOSTIGMINE 3 MG/3 ML VIAL ONE (17:00)
[2020-08-24] MEDS ORDERED: LACTATED RINGERS 1,000 ML IV PRN (17:00)
[2020-08-24] MEDS ORDERED: GLYCOPYRROLATE 0.2 MG/ML (ROBINUL) 2 ML VIAL ONE (17:00)
--- NOTE | 2020-08-24 17:06 | NUR ---
Oxygen sats at 86% for 1600 vitals, started one one liter oxygen per NC, encouraged deep breathing/cough. To the OR at 1615.
--- NOTE | 2020-08-24 19:40 | Diagnostic Imaging Report ---
EXAMINATION: Chest radiograph, portable AP view. DATE: 08/24/2020 7:31 PM INDICATION: 79-year-old female, postop. COMPARISON: August 23, 2020. FINDINGS: Heart size and mediastinal contours are unchanged. There is no identified sizable pneumothorax. There is a gradient of attenuation overlying the right mid and lower lung zone. There is also nonspecific left basilar airspace consolidation. Overall appearance of the chest is essentially unchanged. IMPRESSION: Unchanged nonspecific bibasilar airspace consolidation with probable bilateral pleural effusions, right greater than left. Dictated by: Dictated on workstation # [id number]
[2020-08-24] MEDS ORDERED: morphine INJ 10 MG/ML 1ML (SYR OR VIAL) IVP ONE (20:45)
[2020-08-24] MEDS ORDERED: ONDANSETRON 4 MG/2 ML (SDV) Z0FRAN IVP PRN (20:45)
[2020-08-25] VITALS: BP 109/74
--- NOTE | 2020-08-25 00:33 | OPERATIVE REPORT ---
DATE OF SERVICE: 08/24/2020 ATTENDING PRIMARY CARE PHYSICIAN: Tamir Brewer MD. PREOPERATIVE DIAGNOSIS: Symptomatic chronic calculous cholecystitis. POSTOPERATIVE DIAGNOSIS: Symptomatic chronic calculous cholecystitis. PROCEDURE: Laparoscopic cholecystectomy. SURGEON: Shayne Santillan MD. MINERAL RESOURCES INSPECTOR: Jason Medellin APRN. ANESTHESIA: General endotracheal. ESTIMATED BLOOD LOSS: Minimal. ANESTHESIA: General endotracheal. ESTIMATED BLOOD LOSS: Minimal. FINDINGS: Large solitary gallstone. DISPOSITION: The patient tolerated the procedure well. INDICATIONS: The patient is a 79-year-old female who presented with nausea and vomiting as well as abdominal pain. Upon further questioning, she had reported that she had had intermittent symptoms similar to this before; however, not severe. A CT scan was performed, which did show dilatation of the gallbladder; however, no stones; however, there was a high index of suspicion for gallbladder etiology. An ultrasound was performed, which did show gallstones. DESCRIPTION OF PROCEDURE: The patient was brought to the operating room, laid supine on the table. After adequate IV pain and sedative medications and general endotracheal intubation, the abdomen was prepped and draped in standard surgical fashion. A 0.5% Marcaine with epinephrine was then used to anesthetize the overlying skin left upper abdominal quadrant and a transverse skin incision made using 15-blade. A #0 silk suture was applied to the medial aspect of incision for retraction and a Veress needle inserted with a low opening pressure of 0 mmHg. The abdomen was insufflated to 15 mmHg pressure. Veress needle removed and a 5 mm XL trocar placed followed by a 5 mm 45-degree angle laparoscope visualizing the peritoneal cavity. A 4-quadrant abdominal exploration was performed. There was a distended gallbladder and mild hepatomegaly. Under direct visualization, we then proceeded to place a supraumbilical 10 mm port after the skin and peritoneal lining were anesthetized using 0.5% Marcaine with epinephrine and a transverse skin incision made using a 15-blade. In a similar manner, a right upper abdominal quadrant 5 mm port was placed. The fundus of the gallbladder was then retracted anteriorly and superiorly and the patient was then placed in reverse Trendelenburg position as well as plane right side up, left side down. The hepatoduodenal ligament was then opened using blunt dissection as well as electrocautery on hook instrument. The entire critical view of safety was identified including the triangle of Calot as well as the cystic duct and artery as only two structures going into the gallbladder as well as the cystic plate behind the proximal gallbladder. A timeout was then taken and the cystic duct and artery were then clipped proximally, distally and cut with EndoShears. The gallbladder was then dissected off the liver bed using cautery and hook instrument with visualization of good hemostasis as well as no leaking ducts of Luschka. The gallbladder was removed through the 10 mm port site using an EndoCatch bag. The 10 mm port site fascia and peritoneum were then closed under direct visualization using a Miguel-Toño device and #0 Vicryl suture. The abdomen was desufflated and remaining ports removed. All skin incisions were closed using 4-0 Monocryl running subcuticular sutures. Wounds were then cleaned and covered with Dermabond. The patient tolerated the procedure well. We will start IV normal pain medication as well as a clear liquid diet. When she is tolerating clears, has good pain control with oral pain medication and is ambulating well, we will discharge her home. Job ID: [id number] DocumentID: [id number] Dictated Date: 08/24/2020 17:14:53 Class A Truck Driver Date: 08/25/2020 00:32:57 Dictated By: SHAYNE SANTILLAN MD
[2020-08-25 04:00] VITALS: BP 121/77
[2020-08-25 05:49] LABS: HEMOGLOBIN 10.2 g/dL (11.5-16.0); MEAN PLATELET VOLUME 9.9 fL (9.0-12.2); WHITE BLOOD COUNT 13.6 10^3/uL (4.3-11.0)
[2020-08-25 06:07] LABS: CHLORIDE 102 MMOL/L (98-107); POTASSIUM 3.8 MMOL/L (3.6-5.0); SODIUM 136 MMOL/L (135-145)
[2020-08-25 06:08] LABS: CALCIUM 8.1 MG/DL (8.5-10.1)
[2020-08-25 06:09] LABS: GLUCOSE 124 MG/DL (70-105); TOTAL PROTEIN 5.3 GM/DL (6.4-8.2)
[2020-08-25 06:10] LABS: CARBON DIOXIDE 24 MMOL/L (21-32)
[2020-08-25 06:11] LABS: BILIRUBIN,TOTAL 0.7 MG/DL (0.1-1.0)
[2020-08-25 06:12] LABS: ALKALINE PHOSPHATASE 62 U/L (40-136)
[2020-08-25 06:13] LABS: CREATININE SERUM 0.68 MG/DL (0.60-1.30); GFR ESTIMATED > 60
[2020-08-25 06:14] LABS: BUN/CREATININE RATIO 19
[2020-08-25 06:16] LABS: ALANINE AMINOTRANSFERASE 139 U/L (0-55)
--- NOTE | 2020-08-25 06:52 | Anesthesia-General Post-Op ---
General Patient Condition Mental Status/LOC: Same as Preop Cardiovascular: Satisfactory Nausea/Vomiting: Absent Respiratory: Satisfactory Pain: Controlled Complications: Absent Post Op Complications Complications None Follow Up Care/Instructions Patient Instructions None needed. Anesthesia/Patient Condition Patient Condition Patient is doing well, no complaints, stable vital signs, no apparent adverse anesthesia problems. No complications reported per nursing. D/C home per [facility] Criteria: Yes DELBERT WILSON CRNA Aug 25, 2020 06:52
[2020-08-25 08:06] VITALS: BP 122/60
[2020-08-25] MEDS: metroNIDAZOLE 500MG/100ML IVPB 100 ML IV SCH (11:09)
[2020-08-25] MEDS: LACTATED RINGERS 1,000 ML IV SCH (11:26)
[2020-08-25 11:41] VITALS: BP 146/90
--- NOTE | 2020-08-25 13:05 | Progress Note ---
Subjective Date Seen by a Provider: Aug 25, 2020 Time Seen by a Provider: 11:00 Subjective/Events-last exam doing well. tolerating diet. pain controlled. ambulating well. Focused Exam Lactate Level 08/22/20 14:50: Lactic Acid Level 0.95 08/23/20 12:00: Lactic Acid Level 1.63 Objective Exam Vital Signs Date Time Temp Pulse Resp B/P (MAP) Pulse Ox O2 Delivery O2 Flow Rate FiO2 08/25/20 11:41 37.2 99 20 146/90 (108) 90 Room Air 08/25/20 08:06 36.9 95 18 122/60 (80) 93 Nasal Cannula 4.00 08/25/20 06:56 Nasal Cannula 4.00 93 08/25/20 04:00 37.2 81 18 121/77 (92) 93 Nasal Cannula 4.00 08/25/20 02:13 Nasal Cannula 4.00 94 08/25/20 00:00 37.1 104 18 109/74 (86) 93 Nasal Cannula 2.00 08/24/20 23:32 90 Nasal Cannula 3.00 08/24/20 20:00 Nasal Cannula 3.00 08/24/20 19:44 36.8 104 18 103/56 (72) 93 Nasal Cannula 2.00 08/24/20 19:30 Nasal Cannula 5 08/24/20 19:15 OxyMask 5 08/24/20 19:10 16 96/60 (72) 92 Nasal Cannula 5 08/24/20 19:00 OxyMask 8 08/24/20 19:00 15 109/91 (97) 91 OxyMask 5 08/24/20 18:50 18 101/65 (77) 91 OxyMask 6 08/24/20 18:40 OxyMask 8 08/24/20 18:40 14 103/66 (78) 92 OxyMask 8 08/24/20 18:30 OxyMask 8 08/24/20 18:30 16 94/51 (65) 90 OxyMask 10 08/24/20 18:20 20 95/72 (80) 90 OxyMask 10 08/24/20 18:20 OxyMask 10 08/24/20 18:10 OxyMask 10 08/24/20 18:10 24 93/72 (79) 89 OxyMask 10 08/24/20 18:00 OxyMask 10 08/24/20 18:00 23 98/71 (80) 91 OxyMask 10 08/24/20 17:50 OxyMask 10 08/24/20 17:50 23 127/84 (98) 91 OxyMask 10 08/24/20 17:40 23 113/63 (80) 91 OxyMask 15 08/24/20 17:36 36.8 14 110/64 (79) 91 OxyMask 15 08/24/20 17:36 OxyMask 10 08/24/20 15:45 37.4 98 16 119/59 (79) 95 Nasal Cannula 1.00 I & O 08/25/20 07:00 Intake Total 1270 ml Output Total 900 ml Balance 370 ml Capillary Refill : Less Than 3 SecondsLess Than 3 Seconds General Appearance: No Apparent Distress HEENT: PERRL/EOMI Neck: Full Range of Motion Respiratory: Chest Non Tender, Lungs Clear, Normal Breath Sounds Cardiovascular: Regular Rate, Rhythm Gastrointestinal: normal bowel sounds, soft, tenderness Extremity: Normal Capillary Refill Neurologic/Psychiatric: Alert, Oriented x3 Skin: Normal Color Lymphatic: No Adenopathy Results Lab Laboratory Tests 08/25/20 05:23: White Blood Count 13.6H, Red Blood Count 3.43L, Hemoglobin 10.2L, Hematocrit 31L , Mean Corpuscular Volume 91, Mean Corpuscular Hemoglobin 30, Mean Corpuscular Hemoglobin Concent 33, Red Cell Distribution Width 13.1, Platelet Count 173, Mean Platelet Volume 9.9, Sodium Level 136, Potassium Level 3.8, Chloride Level 102, Carbon Dioxide Level 24, Anion Gap 10, Blood Urea Nitrogen 13, Creatinine 0.68, Estimat Glomerular Filtration Rate > 60, BUN/Creatinine Ratio 19, Glucose Level 124H, Calcium Level 8.1L, Corrected Calcium 8.9, Total Bilirubin 0.7, Aspartate Amino Transf (AST/SGOT) 102H, Alanine Aminotransferase (ALT/SGPT) 139H , Alkaline Phosphatase 62, Total Protein 5.3L, Albumin 3.0L Microbiology 08/23/20 MRSA Screen - Final, Complete MRSA not isolated 08/23/20 Blood Culture - Preliminary, Resulted No growth 08/22/20 Urine Culture - Final, Complete Strep agalactiae Group B Assessment/Plan Assessment/Plan Assess & Plan/Chief Complaint s/p lap rashard for chronic calculous cholecystitis. ambulate. IS. home soon. Clinical Quality Measures DVT/VTE Risk/Contraindication: Risk Factor Score Per Nursin RFS Level Per Nursing on Admit: 4+=Very High SHAYNE SANTILLAN MD Aug 25, 2020 13:05
--- NOTE | 2020-08-25 14:00 | NUR ---
MAXX MAXWELL demonstrates understanding of discharge instructions and accurately returns instructions upon questioning. Copy of Post-Discharge Instructions given to PT. MAXX MAXWELL is able to manage continuing needs after discharge. Patients belongings returned to PT. Patient discharged from [facility] on 08/25/20 at 1404. MAXX MAXWELL left floor via W/C, accompanied by STAFF AND FAMILY PER AUTO.
--- NOTE | 2020-08-25 14:07 | Discharge Summary ---
JUVECATHIE Nasrin MED STUDENT 08/25/20 1347: Discharge Summary Hospital Course Problems Reviewed?: Yes Problems/Diagnosis: (1) Sepsis Status: Resolved Resolution Date/Time: 08/25/20 @ 13:44 (2) Acute pancreatitis Status: Acute Qualifiers: Qualified Codes: K85.10 - Biliary acute pancreatitis without necrosis or infection (3) Cholelithiasis Status: Resolved Resolution Date/Time: 08/24/20 @ 13:45 Qualifiers: Qualified Codes: K80.71 - Calculus of gallbladder and bile duct without cholecystitis with obstruction (4) Elevated LFTs Status: Resolved Resolution Date/Time: 08/25/20 @ 14:06 (5) UTI (urinary tract infection) Status: Resolved Resolution Date/Time: 08/25/20 @ 13:43 Hospital Course Date of Admission: Aug 22, 2020 at 16:02 Admission Diagnosis : Family Physician/Provider: Tamir Brewer MD Date of Discharge: 08/25/20 Discharge Diagnosis: Acute pancreatitis due to gall stone obstruction Hospital Course: Mariana Chatman is a 79 yo F with past medical history of hypertension who presented on 08/22 for abdominal pain, nausea, and vomiting. Patient meet criteria for sepsis on admission and was subsequently treated with IV fluids, antibiotics, and pain management. Labs and imaging indicated gallstones, pancreatic inflammation, and a UTI. Surgery was consulted and patient had cholecystectomy on 08/24. Patient was well on 08/25 and was cleared for discharge from a surgical and medical standpoint. Incidental finding of endometrial thickening was found on imaging and needs followup outpatient. Labs and Pending Lab Test: Laboratory Tests 08/25/20 05:23: White Blood Count 13.6H, Red Blood Count 3.43L, Hemoglobin 10.2L, Hematocrit 31L , Mean Corpuscular Volume 91, Mean Corpuscular Hemoglobin 30, Mean Corpuscular Hemoglobin Concent 33, Red Cell Distribution Width 13.1, Platelet Count 173, Mean Platelet Volume 9.9, Sodium Level 136, Potassium Level 3.8, Chloride Level 102, Carbon Dioxide Level 24, Anion Gap 10, Blood Urea Nitrogen 13, Creatinine 0.68, Estimat Glomerular Filtration Rate > 60, BUN/Creatinine Ratio 19, Glucose Level 124H, Calcium Level 8.1L, Corrected Calcium 8.9, Total Bilirubin 0.7, Aspartate Amino Transf (AST/SGOT) 102H, Alanine Aminotransferase (ALT/SGPT) 139H , Alkaline Phosphatase 62, Total Protein 5.3L, Albumin 3.0L Microbiology 08/23/20 MRSA Screen - Final, Complete MRSA not isolated 08/23/20 Blood Culture - Preliminary, Resulted No growth 08/22/20 Urine Culture - Final, Complete Strep agalactiae Group B Home Meds Active Reported Azo Cranberry Tablet (Cranberry Conc/C/Bacill Coag) 1 Each Tablet 1 Each PO BID Vitamin C (Ascorbate Calcium) 500 Mg Tablet 500 Mg PO DAILY Multivitamin 1 Each Tablet 1 Each PO DAILY Excedrin Migraine Caplet (Aspirin/Acetaminophen/Caffeine) 1 Each Tablet 2 Each PO Q6-8HR PRN Lisinopril 5 Mg Tablet 5 Mg PO BID Lotemax (Loteprednol Etabonate) 5 Gm Drops.gel 1 Drop OU DAILY Assessment/Pt DC Instructions Acute pancreatitis- likely due to gallstone obstruction Cholelithiasis- General surgery performed lap cholecystectomy on 08/24 Sepsis- resolved UTI- resolved Endometrial thickening- Incidental finding on CT needs followup as outpatient Discharge Diet: No Restrictions, Low Fat/Low Cholesterol Activity as Tolerated: Yes Discharge Physical Examination Allergies: Coded Allergies: amoxicillin (Verified Allergy, Severe, HIVES, 08/22/20) cephalexin (Unverified Allergy, Mild, HIVES, 01/22/10) erythromycin base (Unverified Allergy, Mild, 01/22/10) General Appearance: No Apparent Distress, WD/WN HEENT: PERRL/EOMI, Moist Mucous Membranes Respiratory: Chest Non Tender, Lungs Clear, Normal Breath Sounds, No Accessory Muscle Use, No Respiratory Distress Cardiovascular: Regular Rate, Rhythm, No Edema, No Gallop, No Murmur, Normal Peripheral Pulses Gastrointestinal: Normal Bowel Sounds, No Organomegaly, No Pulsatile Mass, Distended (mild distention ); No Guarding, No Mass, No Rebound, No Splenomegaly; Tenderness (mild tenderness) Extremity: No Pedal Edema Skin: Normal Color, Warm/Dry Neurologic/Psychiatric: Alert, Normal Mood/Affect Discharge Summary Date of Admission Aug 22, 2020 at 16:02 Date of Discharge Discharge Date: Aug 25, 2020 Admission Diagnosis Acute pancreatitis Discharge Diagnosis (1) Acute pancreatitis Status: Acute Qualifiers: Qualified Codes: K85.10 - Biliary acute pancreatitis without necrosis or infection (2) Elevated LFTs Status: Resolved (3) HTN (hypertension) Status: Chronic Qualifiers: Qualified Codes: I10 - Essential (primary) hypertension (4) Thickened endometrium Status: Acute Assessment & Plan: Patient needs followup as an outpatient for further evaluation (5) Obesity Status: Chronic Clinical Quality Measures DVT/VTE Risk/Contraindication: Risk Factor Score Per Nursin RFS Level Per Nursing on Admit: 4+=Very High MICAH GUPTA MD 08/25/20 1421: Discharge Summary Discharge Physical Examination Allergies: Coded Allergies: amoxicillin (Verified Allergy, Severe, HIVES, 08/22/20) cephalexin (Unverified Allergy, Mild, HIVES, 01/22/10) erythromycin base (Unverified Allergy, Mild, 01/22/10) Supervisory-Addendum Brief Verification & Attestation Participated in pt care: history, MDM, physical Personally performed: exam, history, MDM Care discussed with: Medical Student Procedures: n/a I personally did my own history and exam today and they confirm the findings documented by the medical student. CATHIE AN MED STUDENT Aug 25, 2020 13:47 MICAH GUPTA MD Aug 25, 2020 14:21
== END 2020-08-25 14:04 | disposition home or self-care (01) | DRG 853 ==
LOC: EDUNIT# 12:13 → ER 12:15 → 4TH 16:02 → EDLOC 16:02 → 4TH 08-23 09:13
PROVIDERS: ADMIT Internal Medicine; ATTEND Family Medicine
PROC: 0FT44ZZ Resection of Gallbladder, Percutaneous Endoscopic Approach (ICD-10-PCS; principal; 2020-08-24 16:23)
DX: A41.9 Sepsis, unspecified organism (principal); K85.10 Biliary acute pancreatitis without necrosis or infection; N39.0 Urinary tract infection, site not specified; I10 Essential (primary) hypertension; R93.89 Abnormal findings on diagnostic imaging of other specified body structures; E66.9 Obesity, unspecified; Z68.31 Body mass index [BMI] 31.0-31.9, adult; Z88.1 Allergy status to other antibiotic agents
CPT/HCPCS: 36415; 71045; 74022; 74177; 76705; 80053; 81000; 83605; 83690; 84145; 85007; 85025; 85027; 86141; 87040; 87077; 87081; 87088; 87635; 94760

== ENCOUNTER → 2020-10-18 | Outpatient (CLI) | payer MEDICARE ==
[~2020-10-18] MED LIST changes: +ASCO-262 PO; +ASPI-789 PO; +CRAN1TAB4 PO; +LISI-556 PO; +LOTE5GEL OU; +MULT-1136 PO
--- NOTE | 2020-10-18 13:59 | Diagnostic Imaging Report ---
INDICATION: Routine screening. No prior mammograms are available for comparison. This a baseline study. 2-D and 3-D bilateral screening mammography was performed with CAD. Scattered fibroglandular densities are identified bilaterally. There are benign calcifications in both breasts. No mass or malignant appearing microcalcifications are seen. Axillae are unremarkable. IMPRESSION: BI-RADS Category 2 No mammographic features suspicious for malignancy are identified. ACR BI-RADS Category 2: Benign findings. Result letter will be mailed to the patient. Note: At least 10% of breast cancer is not imaged by mammography. Dictated by: Dictated on workstation # [id number]
--- NOTE | 2020-10-18 15:04 | Diagnostic Imaging Report ---
INDICATION: THICKENED ENDOMETRIUM, SCREENING MAMMO TECHNIQUE: Multiple real time steiner scale sonographic images were obtained of the pelvis transabdominally. CORRELATION STUDY: None FINDINGS: UTERUS: 6.8 x 3.4 x 4.0 cm. The uterus appears unremarkable. ENDOMETRIUM: 21 mm. The endometrium is rather significantly abnormally thickened and with a fairly heterogeneous echotexture. RIGHT OVARY/LEFT OVARY: The ovaries are not visualized. This may be owing to their presumed atrophic state or perhaps obscured and/or positional. No definitive abnormal adnexal mass lesion. No significant free pelvic fluid. IMPRESSION: 1. Rather abnormally thickened endometrium. Underlying endometrial neoplasm should be excluded. Dictated by: Dictated on workstation # [id number]
== END ==
LOC: RAD 11:10
PROVIDERS: ATTEND Nurse Practitioner
DX: Z12.31 Encounter for screening mammogram for malignant neoplasm of breast (principal); R93.89 Abnormal findings on diagnostic imaging of other specified body structures
CPT/HCPCS: 76856; 77063; 77067

== ENCOUNTER → 2021-08-21 | Outpatient (CLI) | payer MEDICARE ==
[~2021-08-21] MED LIST changes: -LISI-556 PO; +LISI5TAB20 PO
[2021-08-21 16:27] LABS: HEMATOCRIT 44 % (35-52); HEMOGLOBIN 14.3 g/dL (11.5-16.0); MEAN CORPUSCULAR HEMOGLOBIN 29 pg (25-34); MEAN CORPUSCULAR HGB CONC 32 g/dL (32-36); MEAN CORPUSCULAR VOLUME 91 fL (80-99); MEAN PLATELET VOLUME 9.3 fL (9.0-12.2); PLATELET COUNT 239 10^3/uL (130-400); WHITE BLOOD COUNT 5.4 10^3/uL (4.3-11.0)
[2021-08-21 16:34] LABS: CHLORIDE 103 MMOL/L (98-107); POTASSIUM 4.3 MMOL/L (3.6-5.0); SODIUM 140 MMOL/L (135-145)
[2021-08-21 16:35] LABS: ALBUMIN 4.4 GM/DL (3.2-4.5)
[2021-08-21 16:36] LABS: TRIGLYCERIDES 101 MG/DL (<150); VLDL CHOLESTEROL 20 MG/DL (5-40)
[2021-08-21 16:37] LABS: GLUCOSE 95 MG/DL (70-105); TOTAL PROTEIN 7.2 GM/DL (6.4-8.2)
[2021-08-21 16:38] LABS: CARBON DIOXIDE 27 MMOL/L (21-32)
[2021-08-21 16:39] LABS: BILIRUBIN,TOTAL 0.5 MG/DL (0.1-1.0)
[2021-08-21 16:41] LABS: ALKALINE PHOSPHATASE 84 U/L (40-136); CHOLESTEROL 206 MG/DL (< 200); CREATININE SERUM 0.79 MG/DL (0.60-1.30); GFR ESTIMATED 70
[2021-08-21 16:42] LABS: BUN/CREATININE RATIO 13
[2021-08-21 16:43] LABS: HDL CHOLESTEROL 70 MG/DL (40-60)
[2021-08-21 16:44] LABS: ALANINE AMINOTRANSFERASE 28 U/L (0-55)
--- NOTE | 2021-08-21 16:44 | Diagnostic Imaging Report ---
INDICATION: Tachycardia and hypertension. PA and lateral views of the chest are obtained. Comparison is made to study of 03/27/2009. FINDINGS: Heart size and pulmonary vascularity are within normal limits. There is tortuosity of the thoracic aorta. Slight patchy density is seen along the lateral aspect of the right hilum, which may represent area of atelectasis and/or pneumonitis. IMPRESSION: Mild right parahilar atelectasis and/or pneumonitis without other evidence of acute abnormality or adverse change. Dictated by: Dictated on workstation # [id number]
[2021-08-22 06:39] LABS: ERYTHROCYTE SEDIMENTATION RATE 3 MM/HR (0-30)
== END ==
LOC: RT 15:58
PROVIDERS: ATTEND Physician Assistant
DX: J98.11 Atelectasis (principal); I10 Essential (primary) hypertension; H53.9 Unspecified visual disturbance
CPT/HCPCS: 36415; 71046; 80053; 80061; 84443; 84484; 85027; 85652; 86141; 93005

== ENCOUNTER → 2021-09-03 | Outpatient (CLI) | payer MEDICARE ==
--- NOTE | 2021-09-03 13:52 | Diagnostic Imaging Report ---
INDICATION: Pneumonia. TIME OF EXAM: 1:46 PM. COMPARISON: Correlation is made with the prior chest of 08/21/2021. FINDINGS: The heart size is normal. There is some tortuosity of the descending thoracic aorta. The lungs are hyperinflated, consistent with COPD. No infiltrates are seen. There is no effusion or pneumothorax. IMPRESSION: No acute cardiopulmonary process is detected. Dictated by: Dictated on workstation # [id number]
== END ==
LOC: RAD 13:26
PROVIDERS: ATTEND Physician Assistant
DX: J18.9 Pneumonia, unspecified organism (principal)
CPT/HCPCS: 71046